=== PATIENT | female | born 1990 | race Caucasian/White ===

== ENCOUNTER 2022-06-11 13:53 | Emergency (ER) | payer SELFPAY ==
--- NOTE | 2022-06-11 16:23 | RAD REPORT ---
EXAM DESCRIPTION: US - OB Limited - 06/11/2022 3:30 pm CLINICAL HISTORY: VAGINAL BLEEDING Bleeding and pelvic pain COMPARISON: No comparisons FINDINGS: Limited obstetrical ultrasound was requested by the emergency room. A single cephalic presenting gestation is identified. Heart rate normal. Estimated age is 17 weeks 4 days. ADRIENNE 11/15/2021. Placenta is grade 1 and anterior. No abruption or previa. Amniotic fluid volume grossly normal.
--- NOTE | 2022-06-11 16:48 | ER ---
Nurse's Notes [facility] Name: Roro Jimenes Age: 32 yrs Sex: Female : 1990 Arrival Date: 06/11/2022 Time: 13:54 Bed 9 Private MD: Diagnosis: Threatened Presentation: 06/11 14:58 Chief complaint: Patient states: vaginal bleed, approx 18 weeks , has had past iw miscarriages, wants US. Coronavirus screen: At this time, the client does not indicate any symptoms associated with coronavirus-19. Ebola Screen: Patient negative for fever greater than or equal to 101.5 degrees Fahrenheit, and additional compatible Ebola Virus Disease symptoms Patient denies exposure to infectious person. Patient denies travel to an Ebola-affected area in the 21 days before illness onset. No symptoms or risks identified at this time. Initial Sepsis Screen: Does the patient meet any 2 criteria? No. Patient's initial sepsis screen is negative. Does the patient have a suspected source of infection? No. Patient's initial sepsis screen is negative. Risk Assessment: Do you want to hurt yourself or someone else? Patient reports no desire to harm self or others. Onset of symptoms was June 11, 2022. 14:58 Method Of Arrival: Ambulatory iw 14:58 Acuity: BAYLEE 3 iw Triage Assessment: 16:57 General: Appears in no apparent distress. Behavior is calm, cooperative. 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 - Social history:: Smoking status: unknown. Screenin:57 Abuse screen: Denies threats or abuse. Denies injuries from another. Nutritional iw screening: No deficits noted. Tuberculosis screening: No symptoms or risk factors identified. Fall Risk None identified. Assessment: 16:00 General: Appears in no apparent distress. Behavior is calm, cooperative. Pain: Denies iw pain. Neuro: Level of Consciousness is awake, alert, obeys commands, Oriented to person, place, time, situation. Cardiovascular: Patient's skin is warm and dry. Respiratory: Respiratory effort is even, unlabored, Respiratory pattern is regular, symmetrical. : Reports vaginal bleeding that is. Derm: Skin is intact, is healthy with good turgor. Vital Signs: 14:46 BP 125 / 108; Pulse 102; Resp 20; Temp 97.8(O); Pulse Ox 100% on R/A; Weight 63.5 kg; em1 Height 5 ft. 4 in. (162.56 cm); Pain 7/10; 14:46 Body Mass Index 24.03 (63.50 kg, 162.56 cm) em1 ED Course: 13:54 Patient arrived in ED. mr 14:14 Bill Akbar NP is PHCP. pm1 14:14 Junior Esteban DO is Attending Physician. pm1 14:58 Sara Sarmiento, RN is Primary Nurse. iw 14:59 Triage completed. iw 15:32 US OB Limited In Process Unspecified. EDMS 16:00 Patient has correct armband on for positive identification. iw 16:57 Arm band placed on. iw 16:57 No provider procedures requiring assistance completed. Patient did not have IV access iw during this emergency room visit. Administered Medications: No medications were administered Medication: 16:00 VIS not applicable for this client. iw Outcome: 16:47 Discharge ordered by MD. pm1 16:57 Discharged to home ambulatory, with family. iw 16:57 Condition: good 16:57 Discharge instructions given to patient, family, Instructed on discharge instructions, follow up and referral plans. 16:58 Patient left the ED. iw Signatures: Dispatcher [employer] Francine Villavicencio Sara Sarmiento, RN Escobar Sampson em1 Bill Akbar NP BUSINESS RESILIENCY MANAGER pm1
--- NOTE | 2022-06-11 16:48 | EDPHYS ---
Physician Documentation [facility] Name: Roro Jimenes Age: 32 yrs Sex: Female : 1990 Arrival Date: 06/11/2022 Time: 13:54 Bed 9 Private MD: ED Physician Junior Esteban HPI: 06/11 14:55 This 32 yrs old Female presents to ER via Ambulatory with complaints of 18 wks pm1 , Vaginal Bleeding. 14:55 The patient presents with vaginal bleeding that is moderate, with clots. Onset: The pm1 symptoms/episode began/occurred 3 day(s) ago. Modifying factors: The symptoms are alleviated by nothing, the symptoms are aggravated by nothing. Associated signs and symptoms: Pertinent positives: cramping, Pertinent negatives: dysuria, fever, nausea, vomiting. Severity of symptoms: in the emergency department the symptoms have improved, it was at its worse yesterday. The patient is sexually active. The patient has experienced similar episodes in the past, 2 prior miscarriages. The patient has not recently seen a physician, Patient does not have OB. Patient with three prior ultrasounds, most recent ultrasound to confirm at approximately 18 weeks. 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 - Social history:: Smoking status: unknown. ROS: 14:55 Positive for vaginal bleeding, Negative for urinary symptoms. pm1 14:55 Constitutional: Negative for fever, chills, and weight loss, Cardiovascular: Negative for chest pain, palpitations, and edema, Respiratory: Negative for shortness of breath, cough, wheezing, and pleuritic chest pain. 14:55 Back: Negative for injury and pain, MS/Extremity: Negative for injury and deformity, Skin: Negative for injury, rash, and discoloration, Neuro: Negative for headache, weakness, numbness, tingling, and seizure. 14:55 Abdomen/GI: Positive for abdominal cramps, of the suprapubic area, Negative for nausea, vomiting, and diarrhea. 14:55 All other systems are negative. Exam: 14:55 Constitutional: This is a well developed, well nourished patient who is awake, alert, pm1 and in no acute distress. Head/Face: Normocephalic, atraumatic. 14:55 Back: No spinal tenderness. No costovertebral tenderness. Full range of motion. Skin: Warm, dry with normal turgor. Normal color with no rashes, no lesions, and no evidence of cellulitis. MS/ Extremity: Pulses equal, no cyanosis. Neurovascular intact. Full, normal range of motion. 14:55 Eyes: Exam is negative for acute changes, Periorbital structures: no acute changes, Extraocular movements: no acute changes. 14:55 ENT: Mouth: no acute changes, Lips: normal, moist, Oral mucosa: normal, pink and intact, moist. 14:55 Cardiovascular: Exam negative for acute changes, Rate: normal, Rhythm: regular, Pulses: no pulse deficits are appreciated. 14:55 Respiratory: Exam negative for acute changes, respiratory distress, shortness of breath. 14:55 Abdomen/GI: Inspection: abdomen appears normal, Palpation: abdomen is soft and non-tender, in all quadrants, fundus palpable 2 cm below umbilicus. 14:55 Neuro: Exam negative for acute changes, Orientation: is normal, Mentation: is normal, Motor: is normal, moves all fours. Vital Signs: 14:46 BP 125 / 108; Pulse 102; Resp 20; Temp 97.8(O); Pulse Ox 100% on R/A; Weight 63.5 kg; em1 Height 5 ft. 4 in. (162.56 cm); Pain 7/10; 14:46 Body Mass Index 24.03 (63.50 kg, 162.56 cm) em1 MDM: 14:40 Patient medically screened. pm1 14:55 Data reviewed: vital signs. Data interpreted: Pulse oximetry: on room air is 100 %. pm1 Interpretation: normal. 14:55 Refusal of service: The patient/guardian displays adequate decision making capability pm1 and despite a detailed discussion of alternatives, benefits, risks, and consequences refuses: all lab tests, Medications, Patient refused IV saline lock, IV fluidsnormal saline, labs (urine, blood work including CBC, CMP, and blood type/rH). Patient reports she believes she is B Positive. Explained importance of getting blood type to determine if there is a need for RhoGAM. Patient reports she does not want any test except for the ultrasound due to financial reasons and lack of insurance despite explanation for the need for blood work and urine. 16:45 Refusal of service: The patient/guardian displays adequate decision making capability pm1 and despite a detailed discussion of alternatives, benefits, risks, and consequences refuses: all lab tests, Discussed results of ultrasound with patient and her father. Patient once again refused all labs and possible RhoGAM administration. Explained the importance of the blood work urine sample, CBC, CMP, blood type/Rh. Patient does not want to get blood work and labs at this moment and wants to wait until she sees outpatient OB. Explained to the patient and father she may return to the ER at anytime for any issues or concerns. 06/11 14:54 Order name: US OB Limited; Complete Time: 16:28 pm1 Administered Medications: No medications were administered Disposition: 23:02 Co-signature as Attending Physician, Junior Esteban DO I agree with the assessment and ms3 plan of care. Disposition Summary: 06/11/22 16:47 Discharge Ordered Location: Home pm1 Problem: new pm1 Symptoms: have improved pm1 Condition: Stable pm1 Diagnosis - Threatened pm1 Followup: pm1 - With: Emergency Department - When: As needed - Reason: Worsening of condition Followup: pm1 - With: Private Physician - When: 2 - 3 days - Reason: Recheck today's complaints, Continuance of care, Re-evaluation by your physician Discharge Instructions: - Discharge Summary Sheet pm1 - Threatened Miscarriage pm1 - Vaginal Bleeding During , Second Trimester pm1 - Activity Restriction During pm1 Forms: - Medication Reconciliation Form pm1 - Thank You Letter pm1 - Antibiotic Education pm1 - Prescription Opioid Use pm1 Signatures: Dispatcher [employer] Sara Hampton, Bill Roberson RN, NP HIDE TANNER pm1 Junior Esteban DO DO ms3
[2022-06-11 17:03] VITALS: BP 125/108; TEMP 97.8; O2SAT 100
== END 2022-06-11 16:58 | disposition home or self-care (01) ==
LOC: ER 13:53
DX: O20.0 Threatened abortion (principal); Z3A.18 18 weeks gestation of pregnancy
CPT/HCPCS: 76815; 99283